=== PATIENT | male | born 1990 | race Caucasian/White ===

== ENCOUNTER 2020-02-04 21:03 | Emergency (ER) | payer OTHER, MEDICAID ==
[~2020-02-04] VITALS: Ht 188 cm; Wt 72.6 kg
[2020-02-04] MEDS ORDERED: ADDERALL 20 MG20 MG PO (21:20)
[2020-02-04] MEDS ORDERED: NICOTINE PATCH1 EACH TD (21:20)
--- OUTSIDE RECORDS SUMMARY | 2020-02-04 22:00 | XMS ---
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 Lenny has no Care Guidelines for this patient. Karmen VISIT COUNT (12 MO.) 1 RONNIE Leija TOTAL 1 NOTE: Visits indicate total known visits. ED/C VISIT TRACKING (12 MO.) 02/04/2020 21:03 RONNIE Roque [place] TYPE: Emergency COMPLAINT: - EYE INJURY INPATIENT VISIT TRACKING (12 MO.) No inpatient visits to display in this time frame [id number]
== END 2020-02-04 21:50 | disposition home or self-care (01) ==
LOC: ED 21:03
DX: S05.01XA Injury of conjunctiva and corneal abrasion without foreign body, right eye, initial encounter (principal); F90.9 Attention-deficit hyperactivity disorder, unspecified type; W22.8XXA Striking against or struck by other objects, initial encounter; Z79.899 Other long term (current) drug therapy
CPT/HCPCS: 99283